=== PATIENT | male | born 1965 | race Caucasian/White ===

== ENCOUNTER 2021-10-14 15:22 | Emergency (ER) | payer SELFPAY ==
[~2021-10-14] VITALS: Ht 157.5 cm; Wt 100.0 kg
[2021-10-14] MEDS ORDERED: ALBU6.7H9 INH (16:29)
== END 2021-10-14 17:11 | disposition home or self-care (01) ==
LOC: ER 15:24
DX: J06.9 Acute upper respiratory infection, unspecified (principal); I10 Essential (primary) hypertension; Z20.822 Contact with and (suspected) exposure to COVID-19; Z79.899 Other long term (current) drug therapy
CPT/HCPCS: 36415; 71045; 99284; U0003; U0005